=== PATIENT | male | born 2000 | race Caucasian/White ===

== ENCOUNTER 2021-03-13 03:01 | Emergency (ER) | payer OTHER ==
--- NOTE | 2021-03-13 03:21 | ED ---
Anxiety HPI - General Chief Complaint: Alcohol Stated Complaint: ETOH Time Seen by Provider: 03/13/21 03:16 Source: EMS Mode of arrival: EMS Review of Systems ROS Statement: Those systems with pertinent positive or pertinent negative responses have been documented in the HPI. ROS Other: All systems not noted in ROS Statement are negative. Past Medical History History of Any Multi-Drug Resistant Organisms: None Reported Past Psychological History: Anxiety, Depression Smoking Status: Never smoker Past Alcohol Use History: Occasional Past Drug Use History: Marijuana Medical Decision Making - EKG Data -: EKG Interpreted by Me (KG sinus rhythm 72 OK 124 QRS 110 QTc 416) Disposition Clinical Impression: Chest pain, Anxiety Disposition: HOME SELF-CARE Condition: Good Instructions (If sedation given, give patient instructions): Chest Pain (ED) Is patient prescribed a controlled substance at d/c from ED?: No Referrals: None,Stated [Primary Care Provider] - 1-2 days
[2021-03-13 05:25] VITALS: RESP 18
[2021-03-13 06:25] VITALS: BP 100/55; PULSE 59; TEMP 98.1
== END 2021-03-13 06:55 | disposition home or self-care (01) ==
LOC: EC 03:01
DX: F41.9 Anxiety disorder, unspecified (principal); R07.9 Chest pain, unspecified; F32.9 Major depressive disorder, single episode, unspecified; F12.90 Cannabis use, unspecified, uncomplicated
CPT/HCPCS: 93005; 99284